=== PATIENT | female | born 1980 | race Caucasian/White ===

== ENCOUNTER 2017-02-20 03:59 | Emergency (ER) | payer MEDICAID ==
[~2017-02-20] VITALS: Ht 167.6 cm; Wt 76.5 kg
[~2017-02-20 03:59] MED LIST: FERR27TA PO; PREN1TAB49 PO
[2017-02-20 04:05] VITALS: Ht 167.6 cm; Wt 76.5 kg
[2017-02-20] MEDS ORDERED: ONDANSETRON 4 MG INJ IV STA (04:28)
[2017-02-20] MEDS ORDERED: morphine 4 MG/ML VIAL IV STA (04:28)
[2017-02-20] MEDS ORDERED: SOD CHLORIDE 0.9% 1,000 ML IV STA (04:28)
[2017-02-20 04:36] LABS: URINE BLOOD (Dip) POC 2+ (NEGATIVE)
--- NOTE | 2017-02-20 04:47 | RADRPT ---
PROCEDURE: ULTRASOUND LIMITED ABDOMEN CLINICAL INDICATION: 36-year-old female with abdominal pain. TECHNIQUE: Multiple sonographic of the right upper quadrant of the abdomen were obtained. The imag es were reviewed on a PACS workstation. COMPARISON: CT abdomen/pelvis October 16, 2014. FINDINGS: The pancreas is partially visualized and is otherwise without abnormal echogenicity. The liver displays normal echogenicity. The liver measures 17.6 cm in length. No evidence of intrah epatic biliary ductal dilatation is seen. The portal and hepatic veins are unremarkable. The gallbladder contains multiple shadowing stones. The gallbladder wall thickness is within normal limits measuring 2.8 mm. No pericholecystic fluid is seen. The common bile duct measures 3.9 mm an d is not dilated. The right kidney displays normal echogenicity. The right kidney measures 11.0 cm in maximal length. No caliectasis or hydronephrosis is seen. No free fluid is seen. IMPRESSION: Cholelithiasis. .Mulugeta Kebede MD, MD Date Time Electronically viewed and signed by .Mulugeta Kebede MD, on 02/20/2017 04:47 .M/
[2017-02-20] MEDS ORDERED: IBUP800T25 PO (04:54)
--- NOTE | 2017-02-20 04:58 | ERD ---
ER Documentation Chief Complaint Date/Time DATE: 02/20/17 TIME: 04:57 Chief Complaint upper abd pain x 1 week radaiting to back HPI 36-year-old female with abdominal pain for 1 week radiating to her back. Patient has history of gallstones. Mild nausea. No vomiting. No fevers no chills. Pain mild to moderate intensity ROS All systems reviewed and are negative except as per history of present illness. Medications Home Meds Reported Medications Ibuprofen* (Ibuprofen*) 800 Mg Tab, 800 MG PO Q6H Y for PAIN, TAB 02/20/17 Discontinued Reported Medications Vits W-Ca,Fe,Fa(<1MG) () 1 Tab Tablet, PO DAILY 12/11/11 Ferrous Sulfate (Iron) 1 Tab Tablet, 1 TAB PO 11/09/11 Vits W-Ca,Fe,Fa(<1MG) () 1 Tab Tablet, 1 TAB PO 11/09/11 Allergies Allergies: Coded Allergies: No Known Allergy (Unverified , 02/20/17) PMhx/Soc History of Surgery: Yes (ceserean section) Anesthesia Reaction: No Hx Neurological Disorder: No Hx Respiratory Disorders: No Hx Cardiac Disorders: No Hx Psychiatric Problems: No Hx Miscellaneous Medical Probl: No Hx Alcohol Use: No Hx Substance Use: No Hx Tobacco Use: No Smoking Status: Never smoker Physical Exam Vitals Vital Signs Date Time Temp Pulse Resp B/P Pulse Ox O2 Delivery O2 Flow Rate FiO2 02/20/17 04:46 98.3 57 14 119/80 98 Room Air 02/20/17 04:05 98.2 66 20 138/85 100 Physical Exam Const: [] Head: Atraumatic Eyes: Normal Conjunctiva ENT: Normal External Ears, Nose and Mouth. Neck: Full range of motion..~ No meningismus. Resp: Clear to auscultation bilaterally Cardio: Regular rate and rhythm, no murmurs Abd: Soft, non tender, non distended. Normal bowel sounds Skin: No petechiae or rashes Back: No midline or flank tenderness Ext: No cyanosis, or edema Neur: Awake and alert Psych: Normal Mood and Affect Results 24 hrs Laboratory Tests Test 02/20/17 04:31 Bedside Urine pH (LAB) 6.0 Bedside Urine Protein (LAB) 1+ Bedside Urine Glucose (UA) Negative Bedside Urine Ketones (LAB) Negative Bedside Urine Blood 2+ Bedside Urine Nitrite (LAB) Negative Bedside Urine Leukocyte Esterase (L Negative Current Medications Medications (Trade) Dose Ordered Sig/Savita Route PRN Reason Start Time Stop Time Status Last Admin Dose Admin Sodium Chloride (NS) 1,000 ml @ 1,000 mls/hr Q1H STAT IV 02/20/17 04:28 02/20/17 05:27 02/20/17 04:41 Morphine Sulfate (morphine) 4 mg ONCE STAT IV 02/20/17 04:28 02/20/17 04:30 DC 02/20/17 04:40 Ondansetron HCl (Zofran Inj) 4 mg ONCE STAT IV 02/20/17 04:28 02/20/17 04:30 DC 02/20/17 04:40 Procedures/MDM Medical decision making: Patient has evidence of gallstones. At this point clinically stable. Discharge home. Follow-up in 8 hours for serial abdominal exams. No evidence of a sending cholangitis, cholecystitis, pancreatitis Departure Diagnosis: Primary Impression: Gallstones Condition: Stable AUTUMN CARBAJAL Feb 20, 2017 04:58
[2017-02-20] MEDS ORDERED: TRAM50TA2 PO (04:59)
[2017-02-20 05:04] LABS: BASOPHILS % 0.6 % (0.0-2.0); EOSINOPHILS # 0.1 10^3/ul (0.0-0.5); EOSINOPHILS % 2.2 % (0.0-7.0); HEMATOCRIT 38.8 % (37.0-47.0); LYMPHOCYTES # 2.7 10^3/ul (0.8-2.9); LYMPHOCYTES % 42.9 % (15.0-51.0); MEAN CORPUSCULAR HEMOGLOBIN 28.6 pg (29.0-33.0); MEAN CORPUSCULAR HGB CONC 33.5 g/dl (32.0-37.0); MEAN CORPUSCULAR VOLUME 85.3 fl (82.0-101.0); MEAN PLATELET VOLUME 10.9 fl (7.4-10.4); MONOCYTE # 0.5 10^3/ul (0.3-0.9); MONOCYTES % 7.8 % (0.0-11.0); NEUTROPHIL # 2.9 10^3/ul (1.6-7.5); NEUTROPHILS % 46.2 % (39.0-77.0); PLATELET COUNT 248 10^3/UL (140-415); RED BLOOD COUNT 4.55 10^6/ul (4.20-5.40); RED CELL DISTRIBUTION WIDTH 12.6 % (11.5-14.5); WHITE BLOOD COUNT 6.3 10^3/ul (4.8-10.8)
[2017-02-20 05:33] LABS: ALBUMIN 4.1 g/dl (3.3-4.9); ALBUMIN/GLOBULIN RATIO 1.17; BILIRUBIN,INDIRECT 0.2 mg/dl (0-1.1); BILIRUBIN,TOTAL 0.2 mg/dl (0.2-1.3); CALCIUM 8.6 mg/dl (8.4-10.2); CREATININE 0.73 mg/dl (0.44-1.00); POTASSIUM 3.6 mmol/L (3.5-5.1); TOTAL PROTEIN 7.6 g/dl (6.1-8.1)
[2017-02-20 05:43] VITALS: BP 119/88; PULSE 88; RESP 12; TEMP 98.3
[2017-02-20 06:08] LABS: ADD UMIC YES; UR ASCORBIC ACID NEGATIVE (NEGATIVE); UR BACTERIA FEW /HPF (NONE SEEN); UR BILIRUBIN (Dip) 1+ mg/dL (NEGATIVE); UR BLOOD (Dip) 2+ mg/dL (NEGATIVE); UR CLARITY SLIGHTLY CLOUDY (CLEAR); UR COLOR YELLOW (YELLOW); UR GLUCOSE (Dip) NEGATIVE (NEGATIVE); UR KETONES (Dip) TRACE mg/dL (NEGATIVE); UR LEUKOCYTE ESTERASE (Dip) NEGATIVE Leu/ul (NEGATIVE); UR MUCUS MANY /HPF (NONE SEEN); UR NITRITE (Dip) NEGATIVE (NEGATIVE); UR RBC 5 /HPF (0-5); UR SQUAMOUS EPITHELIAL CELL MODERATE /HPF (FEW); UR TOTAL PROTEIN (Dip) 1+ mg/dl (NEGATIVE); UR UROBILINOGEN (Dip) NEGATIVE (NEGATIVE)
== END 2017-02-20 05:47 | disposition home or self-care (01) ==
LOC: E/R 03:59
DX: K80.20 Calculus of gallbladder without cholecystitis without obstruction (principal)
CPT/HCPCS: 36415; 76705; 80053; 81001; 83690; 85025; 96374; 96375; J2270; J2405; J7030; Z7502; 81003

== ENCOUNTER 2017-03-14 21:23 | Emergency (ER) | END 2017-03-14 21:45 | disposition left against medical advice (07) | DX: Z53.21 Procedure and treatment not carried out due to patient leaving prior to being seen by health care provider (principal) ==